=== PATIENT | female | born 1965 | race Caucasian/White ===

== ENCOUNTER 2020-07-10 20:40 | Emergency (ER) | payer SELFPAY ==
[~2020-07-10] VITALS: Ht 167.6 cm; Wt 83.1 kg
[2020-07-10 20:41] VITALS: BP 130/84
[2020-07-10] MEDS ORDERED: PENICILLIN V POTASSIUM 500 MG TAB PO ONE (21:30)
[2020-07-10] MEDS ORDERED: OXYCODONE/APAP 5MG/325MG(BULK FOR ED) 1 TABLET PO ONE (21:30)
[2020-07-10] MEDS ORDERED: PENI500T PO (21:34)
[2020-07-10] MEDS ORDERED: PERC5TAB12 PO (21:34)
== END 2020-07-10 22:06 | disposition home or self-care (01) ==
LOC: M ED 20:40
DX: K04.7 Periapical abscess without sinus (principal); F17.200 Nicotine dependence, unspecified, uncomplicated